=== PATIENT | male | born 1945 | race Caucasian/White ===

== ENCOUNTER 2019-01-25 14:16 | Observation (INO) ==
[2019-01-25 14:56] LABS: Basophils # 0.1 10*3/uL (0.0-0.2); Eosinophils # 0.2 10*3/uL (0.0-0.87); Eosinophils % 2.9 % (0.00-10.9); Hematocrit 46.2 VOL% (42.0-52.0); Hemoglobin 15.2 GM/DL (14.0-18.0); Immature Granulocytes % 0.2 %; Immature Granulocytes Absolute 0.02 #; Lymphocytes # 3.7 10*3/uL (1.4-4.0); Lymphocytes % 43.8 % (21.2-54.2); Mean Corpuscular HGB Conc 32.9 GM/DL (32-36); Mean Platelet Volume 9.3 FL (9.6-12.0); Monocytes % 8.3 % (1.7-12.7); Neutrophils % 43.8 % (38.7-73.9); Platelet Count 222 T/CUMM (130-400); Red Blood Count 5.02 MC/CUMM (3.8-5.5); Red Cell Distribution Width 12.4 % (9.3-17.3); White Blood Count 8.3 T/CUMM (4-12)
[2019-01-25 15:07] LABS: INR 0.9; PT Patient Result 9.9 SECS
[2019-01-25 15:24] LABS: Alanine Aminotransferase 24 U/L (16-61); Alkaline Phosphatase 60 U/L (45-117); Aspartate Amino Transferase 20 U/L (0-37); Bilirubin,Total < 0.39 MG/DL (0.2-1.0); Blood Urea Nitrogen 25 MG/DL (7-18); Glucose 107 MG/DL (74-106); Osmolality,Calculated 273.1 MOS/KG (273-304); Total Protein 7.1 G/DL (6.4-8.3)
[2019-01-25] MEDS ORDERED: ASPIRIN CHEW 81 MG TABLET PO STA (15:34)
[2019-01-25] MEDS ORDERED: NITROGLYCERIN 2% OINT 1 INCH/GM PACK TOP STA (15:35)
[2019-01-25] MEDS ORDERED: ENOXAPARIN 80 MG/0.8 ML SYRINGE SUBCUT STA (15:35)
[2019-01-25] MEDS ORDERED: PROMETHAZINE 25 MG/1 ML VIAL IM PRN (16:41)
[2019-01-25] MEDS ORDERED: ACETAMINOPHEN 325 MG TABLET PO PRN (16:41)
[2019-01-25] MEDS ORDERED: ONDANSETRON 4 MG/2 ML VIAL IV PRN (16:41)
[2019-01-25] MEDS ORDERED: cloNIDine 0.1 MG TABLET PO PRN (16:44)
[2019-01-25] MEDS ORDERED: NITROGLYCERIN SL 0.4 MG TABLET SL PRN (16:44)
[2019-01-25] MEDS ORDERED: ALIROCUMAB 150 MG SUBCUT SCH (16:45)
[2019-01-25] MEDS ORDERED: ENOXAPARIN 40 MG/0.4 ML SYRINGE SUBCUT SCH (17:00)
[2019-01-25] MEDS: PANTOPRAZOLE 40 MG TABLET PO SCH (17:56)
[2019-01-25] MEDS ORDERED: SIMVASTATIN 10 MG TABLET PO SCH (21:00)
[2019-01-25] MEDS: ASPIRIN 325 MG TABLET PO SCH (21:50)
[2019-01-25] MEDS: METOPROLOL TARTRATE 50 MG TABLET PO SCH (21:50)
[2019-01-26 05:45] LABS: Basophils # 0.1 10*3/uL (0.0-0.2); Basophils % 1.1 % (0.0-0.8); Eosinophils # 0.2 10*3/uL (0.0-0.87); Eosinophils % 2.8 % (0.00-10.9); Hematocrit 42.9 VOL% (42.0-52.0); Hemoglobin 14.4 GM/DL (14.0-18.0); Immature Granulocytes % 0.6 %; Immature Granulocytes Absolute 0.04 #; Lymphocytes # 2.8 10*3/uL (1.4-4.0); Lymphocytes % 39.5 % (21.2-54.2); Mean Corpuscular HGB Conc 33.6 GM/DL (32-36); Mean Corpuscular Volume 91.3 FL (87-102); Mean Platelet Volume 9.6 FL (9.6-12.0); Monocytes % 8.8 % (1.7-12.7); Neutrophils % 47.2 % (38.7-73.9); Platelet Count 188 T/CUMM (130-400); Red Cell Distribution Width 12.5 % (9.3-17.3); White Blood Count 7.1 T/CUMM (4-12)
[2019-01-26 07:11] LABS: Albumin 3.7 G/DL (3.4-5.0); Alkaline Phosphatase 50 U/L (45-117); Aspartate Amino Transferase 17 U/L (0-37); Bilirubin,Total < 0.39 MG/DL (0.2-1.0); Blood Urea Nitrogen 24 MG/DL (7-18); Calcium 8.9 MG/DL (8.5-10.1); Glucose 89 MG/DL (74-106); HDL Cholesterol 31 MG/DL (40-60); Osmolality,Calculated 277.7 MOS/KG (273-304); Risk Ratio 3.77; Total Protein 6.7 G/DL (6.4-8.3); Triglycerides 174 MG/DL (2-150); VLDL CHOLESTEROL 34.8 MG/DL
[2019-01-26 07:13] LABS: Alanine Aminotransferase 19 U/L (16-61)
[2019-01-26] MEDS: ASPIRIN 325 MG TABLET PO SCH (08:29)
[2019-01-26] MEDS: PANTOPRAZOLE 40 MG TABLET PO SCH (08:30)
[2019-01-26] MEDS: METOPROLOL TARTRATE 50 MG TABLET PO SCH (08:30)
[2019-01-26] MEDS ORDERED: CLOPIDOGREL 75 MG TABLET PO SCH (09:00)
[2019-01-26] MEDS ORDERED: ISOSORBIDE MONONITRATE 30 MG TABLET PO SCH (09:00)
[2019-01-26 16:01] VITALS: BP 112/67
[2019-01-27] MEDS ORDERED: ASPIRIN EC 81 MG TABLET PO SCH (09:00)
== END 2019-01-26 16:50 | disposition home or self-care (01) ==
LOC: N.ED 14:16 → N.EDINP 14:16 → N.TELES 16:43
PROVIDERS: ADMIT Internal Medicine Cardiovascular Disease; ATTEND Internal Medicine Cardiovascular Disease

== ENCOUNTER 2020-04-26 11:10 | Observation (INO) ==
[2020-04-26 12:03] LABS: Basophils # 0.1 10*3/uL (0.0-0.2); Basophils % 0.8 % (0.0-0.8); Eosinophils # 0.2 10*3/uL (0.0-0.87); Eosinophils % 1.8 % (0.00-10.9); Hematocrit 44.2 VOL% (42.0-52.0); Hemoglobin 15.3 GM/DL (14.0-18.0); Immature Granulocytes % 0.2 %; Immature Granulocytes Absolute 0.02 #; Lymphocytes % 36.3 % (21.2-54.2); Mean Corpuscular HGB Conc 34.6 GM/DL (32-36); Mean Corpuscular Volume 89.8 FL (87-102); Mean Platelet Volume 8.9 FL (9.6-12.0); Monocytes % 8.1 % (1.7-12.7); Neutrophils % 52.8 % (38.7-73.9); Platelet Count 208 T/CUMM (130-400); Red Blood Count 4.92 MC/CUMM (3.8-5.5); Red Cell Distribution Width 12.8 % (9.3-17.3); White Blood Count 8.3 T/CUMM (4-12)
[2020-04-26 12:27] LABS: Alanine Aminotransferase 21 U/L (16-61); Albumin 3.8 G/DL (3.4-5.0); Alkaline Phosphatase 65 U/L (45-117); Aspartate Amino Transferase 20 U/L (0-37); Bilirubin,Total < 0.39 MG/DL (0.2-1.0); Blood Urea Nitrogen 20 MG/DL (7-18); Calcium 9.3 MG/DL (8.5-10.1); Estimated Glom Filtration Rate 57 ML/MIN; Glucose 90 MG/DL (74-106); Osmolality,Calculated 277.7 MOS/KG (273-304); Total Protein 7.5 G/DL (6.4-8.3)
[2020-04-26 12:36] LABS: PT Patient Result 10.8 SECS (9.8-11.9); Partial Thromboplastin Time 28.8 SECS (23.9-33.8)
[2020-04-26] MEDS ORDERED: MAGNESIUM SULF RIDER 2 GM in PREMIX 1 EACH IV PRN (12:48)
[2020-04-26] MEDS ORDERED: MAGNESIUM SULF RIDER 4 GM in PREMIX 1 EACH IV PRN (12:48)
[2020-04-26] MEDS ORDERED: NITROGLYCERIN SL 0.4 MG TABLET SL PRN (12:51)
[2020-04-26] MEDS ORDERED: cloNIDine 0.1 MG TABLET PO PRN (12:51)
[2020-04-26] MEDS ORDERED: ISOSORBIDE MONONITRATE 30 MG TABLET PO SCH (21:00)
[2020-04-26] MEDS ORDERED: SIMVASTATIN 10 MG TABLET PO SCH (21:00)
[2020-04-26] MEDS: METOPROLOL TARTRATE 50 MG TABLET PO SCH (21:40)
[2020-04-26] MEDS: ASPIRIN EC 81 MG TABLET PO SCH (21:41)
[2020-04-26] MEDS: DIAZEPAM 2 MG TABLET PO SCH (23:18)
[2020-04-27] MEDS: ASPIRIN EC 81 MG TABLET PO SCH (08:39)
[2020-04-27] MEDS: METOPROLOL TARTRATE 50 MG TABLET PO SCH (08:40)
[2020-04-27] MEDS: DIAZEPAM 2 MG TABLET PO SCH (08:40)
[2020-04-27] MEDS ORDERED: amLODIPine 2.5 MG TABLET PO SCH (09:00)
[2020-04-27] MEDS ORDERED: CLOPIDOGREL 75 MG TABLET PO SCH (09:00)
[2020-04-27 11:57] VITALS: BP 116/75
== END 2020-04-27 14:35 | disposition home or self-care (01) ==
LOC: N.ED 11:10 → N.EDINP 11:10 → N.TELEN 16:25
PROVIDERS: ADMIT Internal Medicine Interventional Cardiology; ATTEND Internal Medicine Interventional Cardiology

== ENCOUNTER 2020-09-29 22:26 | Observation (INO) ==
[2020-09-29] MEDS ORDERED: NITROGLYCERIN SL 0.4 MG TABLET SL PRN ×2 (22:40→23:34)
[2020-09-29 22:55] LABS: Basophils # 0.1 10*3/uL (0.0-0.2); Basophils % 0.7 % (0.0-0.8); Eosinophils # 0.3 10*3/uL (0.0-0.87); Eosinophils % 2.8 % (0.00-10.9); Hematocrit 42.6 VOL% (42.0-52.0); Hemoglobin 14.7 GM/DL (14.0-18.0); Immature Granulocytes % 0.3 %; Immature Granulocytes Absolute 0.03 #; Lymphocytes # 4.6 10*3/uL (1.4-4.0); Lymphocytes % 47.1 % (21.2-54.2); Mean Corpuscular HGB Conc 34.5 GM/DL (32-36); Mean Corpuscular Volume 88.9 FL (87-102); Neutrophils % 42.1 % (38.7-73.9); Platelet Count 203 T/CUMM (130-400); Red Blood Count 4.79 MC/CUMM (3.8-5.5); White Blood Count 9.8 T/CUMM (4-12)
[2020-09-29 23:16] LABS: PT Patient Result 10.7 SECS (9.8-11.9)
[2020-09-29 23:21] LABS: Alanine Aminotransferase 24 U/L (16-61); Albumin 3.8 G/DL (3.4-5.0); Alkaline Phosphatase 50 U/L (45-117); Aspartate Amino Transferase 26 U/L (0-37); Bilirubin,Total < 0.39 MG/DL (0.2-1.0); Blood Urea Nitrogen 28 MG/DL (7-18); Calcium 9.1 MG/DL (8.5-10.1); Carbon Dioxide 27 MMOL/L (21-32); Estimated Glom Filtration Rate 58 ML/MIN; Glucose 103 MG/DL (74-106); Osmolality,Calculated 275.1 MOS/KG (273-304); Potassium 4.4 MMOL/L (3.5-5.1); Sodium 135 MMOL/L (136-145); Total Protein 6.9 G/DL (6.4-8.2)
[2020-09-29] MEDS ORDERED: NITROGLYCERIN 2% OINT 1 INCH/GM PACK TOP STA (23:30)
[2020-09-29] MEDS ORDERED: MAGNESIUM SULF RIDER 2 GM in PREMIX 1 EACH IV PRN (23:30)
[2020-09-29] MEDS ORDERED: MAGNESIUM SULF RIDER 4 GM in PREMIX 1 EACH IV PRN (23:30)
[2020-09-30] MEDS: ENOXAPARIN 40 MG/0.4 ML SYRINGE SUBCUT SCH ×2 (00:01→21:02)
[2020-09-30] MEDS: METOPROLOL TARTRATE 50 MG TABLET PO SCH ×2 (08:05→21:01)
[2020-09-30] MEDS: amLODIPine 2.5 MG TABLET PO SCH (08:05)
[2020-09-30] MEDS: ASPIRIN EC 81 MG TABLET PO SCH ×2 (08:05→21:01)
[2020-09-30] MEDS: CLOPIDOGREL 75 MG TABLET PO SCH (08:05)
[2020-09-30] MEDS ORDERED: ISOSORBIDE MONONITRATE 30 MG TABLET PO SCH (21:00)
[2020-09-30] MEDS ORDERED: SIMVASTATIN 10 MG TABLET PO SCH (21:00)
[2020-10-01 05:27] LABS: Basophils # 0.1 10*3/uL (0.0-0.2); Basophils % 0.8 % (0.0-0.8); Eosinophils # 0.3 10*3/uL (0.0-0.87); Eosinophils % 3.6 % (0.00-10.9); Hematocrit 41.6 VOL% (42.0-52.0); Hemoglobin 14.2 GM/DL (14.0-18.0); Immature Granulocytes % 0.4 %; Immature Granulocytes Absolute 0.03 #; Lymphocytes # 2.9 10*3/uL (1.4-4.0); Lymphocytes % 38.9 % (21.2-54.2); Mean Corpuscular HGB Conc 34.1 GM/DL (32-36); Mean Corpuscular Volume 89.7 FL (87-102); Mean Platelet Volume 9.3 FL (9.6-12.0); Monocytes % 8.6 % (1.7-12.7); Neutrophils % 47.7 % (38.7-73.9); Platelet Count 183 T/CUMM (130-400); Red Blood Count 4.64 MC/CUMM (3.8-5.5); Red Cell Distribution Width 13.1 % (9.3-17.3); White Blood Count 7.3 T/CUMM (4-12)
[2020-10-01 05:54] LABS: Calcium 8.4 MG/DL (8.5-10.1); Osmolality,Calculated 278.7 MOS/KG (273-304); Potassium 3.8 MMOL/L (3.5-5.1)
[2020-10-01] MEDS ORDERED: SODIUM CHLORIDE 0.45% 1,000 ML IV SCH (07:00)
[2020-10-01] MEDS ORDERED: diphenhydrAMINE CAP 25 MG CAPSULE PO ONE (08:00)
[2020-10-01] MEDS ORDERED: DIAZEPAM 5 MG TABLET PO ONE (08:00)
[2020-10-01] MEDS: ASPIRIN EC 81 MG TABLET PO SCH (09:07)
[2020-10-01] MEDS: amLODIPine 2.5 MG TABLET PO SCH (09:07)
[2020-10-01] MEDS: CLOPIDOGREL 75 MG TABLET PO SCH (09:07)
[2020-10-01] MEDS: METOPROLOL TARTRATE 50 MG TABLET PO SCH (09:08)
[2020-10-01] MEDS ORDERED: HEPARIN/NACL 0.9% 2 UNITS/ML 2,000 UNIT/1,000 ML BAG IV ONE (12:24)
[2020-10-01] MEDS ORDERED: LIDOCAINE 1%/EPI INJ 20 ML VIAL ONE (12:24)
[2020-10-01] MEDS ORDERED: fentaNYL 100 MCG/2 ML VIAL ONE (12:25)
[2020-10-01] MEDS ORDERED: MIDAZOLAM 2 MG/2 ML VIAL ONE (12:25)
[2020-10-01 19:48] VITALS: BP 123/72
== END 2020-10-01 20:05 | disposition home or self-care (01) ==
LOC: N.EDINP 22:26 → N.ED 22:26 → N.TELEN 09-30 01:15
PROVIDERS: ADMIT Internal Medicine Interventional Cardiology; ATTEND Internal Medicine Interventional Cardiology

== ENCOUNTER 2020-11-10 06:49 | Inpatient (IN) ==
[2020-11-06 12:44] LABS: Basophils # 0.1 10*3/uL (0.0-0.2); Basophils % 0.9 % (0.0-0.8); Eosinophils # 0.3 10*3/uL (0.0-0.87); Eosinophils % 3.3 % (0.00-10.9); Hematocrit 43.7 VOL% (42.0-52.0); Hemoglobin 14.8 GM/DL (14.0-18.0); Immature Granulocytes % 0.5 %; Immature Granulocytes Absolute 0.04 #; Lymphocytes # 3.3 10*3/uL (1.4-4.0); Lymphocytes % 40.6 % (21.2-54.2); Mean Corpuscular HGB Conc 33.9 GM/DL (32-36); Mean Corpuscular Volume 90.7 FL (87-102); Mean Platelet Volume 9.2 FL (9.6-12.0); Monocytes % 9.2 % (1.7-12.7); Neutrophils % 45.5 % (38.7-73.9); Platelet Count 230 T/CUMM (130-400); Red Blood Count 4.82 MC/CUMM (3.8-5.5); Red Cell Distribution Width 12.7 % (9.3-17.3); White Blood Count 8.2 T/CUMM (4-12)
[2020-11-06 12:52] LABS: PT Patient Result 10.8 SECS (10.5-12.0)
[2020-11-06 13:10] LABS: Albumin 3.8 G/DL (3.4-5.0); Bilirubin,Total 0.6 MG/DL (0.2-1.0); Calcium 9.4 MG/DL (8.5-10.1); Osmolality,Calculated 280.4 MOS/KG (273-304)
[2020-11-10] MEDS ORDERED: LACTATED RINGERS 1,000 ML IV SCH (08:00)
[2020-11-10] MEDS ORDERED: PHENYLEPHRINE 10 MG/1 ML VIAL IV ONE (09:48)
[2020-11-10] MEDS ORDERED: HEPARIN/NACL 0.9% 2 UNITS/ML 1,000 UNIT/500 ML BAG IV ONE (09:48)
[2020-11-10] MEDS ORDERED: NITROGLYCERIN DRIP 50 MG/250 ML BOTTLE IV ONE (09:48)
[2020-11-10] MEDS ORDERED: fentaNYL 100 MCG/2 ML VIAL ONE ×2 (10:27→11:12)
[2020-11-10] MEDS ORDERED: LIDOCAINE 1% 20 ML VIAL ONE (10:53)
[2020-11-10] MEDS ORDERED: HEPARIN 5,000 UNIT/1 ML VIAL ONE (10:53)
[2020-11-10] MEDS ORDERED: PROTAMINE SULFATE 50 MG/5 ML VIAL IV ONE (11:06)
[2020-11-10] MEDS ORDERED: HEPARIN 10,000 UNIT/10 ML VIAL ONE (11:06)
[2020-11-10] MEDS ORDERED: MIDAZOLAM 2 MG/2 ML VIAL ONE (11:12)
[2020-11-10] MEDS ORDERED: ROCURONIUM 50 MG/5 ML VIAL IV ONE (11:12)
[2020-11-10] MEDS ORDERED: LIDOCAINE 2% 5 ML VIAL ONE (11:12)
[2020-11-10] MEDS ORDERED: ePHEDrine 50 MG/ML VIAL ONE (11:12)
[2020-11-10] MEDS ORDERED: propofoL 200 MG/20 ML VIAL IV ONE (11:12)
[2020-11-10] MEDS ORDERED: SEVOFLURANE 1 UNIT/15 MINUTE INH ONE (12:11)
[2020-11-10] MEDS ORDERED: ONDANSETRON 4 MG/2 ML VIAL ONE (12:11)
[2020-11-10] MEDS ORDERED: DEXAMETHASONE 4 MG/1 ML VIAL ONE (12:11)
[2020-11-10] MEDS ORDERED: NEOSTIGMINE 10 MG/10 ML VIAL ONE (12:42)
[2020-11-10] MEDS ORDERED: NALOXONE 0.4 MG/ML VIAL IV PRN (12:47)
[2020-11-10] MEDS ORDERED: oxyCODONE/ACETAMINOPHEN 5-325 MG TABLET PO PRN ×2 (12:47→15:46)
[2020-11-10] MEDS ORDERED: GLUCAGON 1 MG VIAL IM PRN (12:47)
[2020-11-10] MEDS ORDERED: ONDANSETRON 4 MG/2 ML VIAL IV PRN (12:47)
[2020-11-10] MEDS ORDERED: DEXTROSE 50% 25 GM/50 ML VIAL IV PRN (12:47)
[2020-11-10] MEDS ORDERED: PROMETHAZINE 25 MG/1 ML VIAL IM PRN (12:47)
[2020-11-10] MEDS ORDERED: ACETAMINOPHEN 325 MG TABLET PO PRN (12:50)
[2020-11-10] MEDS ORDERED: DIAZEPAM 5 MG TABLET PO PRN (12:52)
[2020-11-10] MEDS ORDERED: NITROGLYCERIN SL 0.4 MG TABLET SL PRN (12:52)
[2020-11-10] MEDS ORDERED: LABETALOL 20 MG/4 ML SYRINGE IV ONE (12:53)
[2020-11-10] MEDS ORDERED: GLYCOPYRROLATE 0.4 MG/2 ML VIAL ONE (12:58)
[2020-11-10] MEDS ORDERED: ESMOLOL 100 MG/10 ML VIAL IV ONE (12:58)
[2020-11-10] MEDS ORDERED: PHENYLEPHRINE DRIP 40 MG/250 ML PREMIX IV SCH (13:00)
[2020-11-10 14:08] VITALS: BP 112/40
[2020-11-10] MEDS: KETOROLAC 30 MG/1 ML VIAL IV ONE ×2 (14:12→15:12)
[2020-11-10] MEDS: LACTATED RINGERS 1,000 ML IV SCH (15:00)
[2020-11-10] MEDS ORDERED: PHENYLEPHRINE DRIP 40 MG/250 ML PREMIX IV PRN (15:20)
[2020-11-10] MEDS: NITROPRUSSIDE 100 MG in DEXTROSE 5% 250 ML IV SCH (15:44)
[2020-11-10] MEDS: KETOROLAC 10 MG TABLET PO SCH (17:59)
[2020-11-10] MEDS ORDERED: SIMVASTATIN 10 MG TABLET PO SCH (21:00)
[2020-11-10] MEDS ORDERED: METOPROLOL TARTRATE 50 MG TABLET PO SCH (21:00)
[2020-11-10] MEDS ORDERED: ISOSORBIDE MONONITRATE 30 MG TABLET PO SCH (21:00)
[2020-11-10] MEDS: ASPIRIN EC 81 MG TABLET PO SCH (22:00)
[2020-11-11] MEDS: KETOROLAC 10 MG TABLET PO SCH ×2 (00:05→06:59)
[2020-11-11] MEDS: LACTATED RINGERS 1,000 ML IV SCH (01:00)
[2020-11-11] MEDS: ASPIRIN EC 81 MG TABLET PO SCH (08:44)
[2020-11-11] MEDS ORDERED: METOPROLOL TARTRATE 25 MG TABLET PO SCH (09:00)
[2020-11-11] MEDS ORDERED: CLOPIDOGREL 75 MG TABLET PO SCH (09:00)
[2020-11-11] MEDS: NITROPRUSSIDE 100 MG in DEXTROSE 5% 250 ML IV SCH (12:53)
== END 2020-11-11 13:50 | disposition home or self-care (01) | DRG 38 ==
LOC: N.OR 06:49 → N.SDSINP 06:52 → EDSTATUS 13:00 → N.ICU 14:02
PROVIDERS: ADMIT Surgery; ATTEND Surgery